=== PATIENT | female | born 1950 | race Caucasian/White ===

== ENCOUNTER 2017-10-15 07:29 | Day surgery (SDC) | payer MEDICARE, BC ==
[~2017-10-15 07:29] MED LIST: PROPOFOL 500 MG/50 ML EMU IV ONE
[2017-10-15 09:47] VITALS: BP 118/66; PULSE 61; RESP 20; TEMP 97.9; O2SAT 99
== END 2017-10-15 09:55 | disposition home or self-care (01) | DRG 951 ==
LOC: SURG 07:29
PROVIDERS: ATTEND Surgery
DX: Z12.11 Encounter for screening for malignant neoplasm of colon (principal); D12.8 Benign neoplasm of rectum; Z86.010 Personal history of colon polyps; Z80.0 Family history of malignant neoplasm of digestive organs
CPT/HCPCS: J2704